=== PATIENT | female | born 1985 | race Caucasian/White ===

== ENCOUNTER 2021-04-04 12:51 | Emergency (ER) | payer MEDICAID ==
--- NOTE | 2021-04-04 14:14 | ED Physician Documentation ---
History of Present Illness - Stated complaint Stated Complaint: BLOODY STOOL - Chief complaint Chief Complaint: Abd Pain - Additonal information Additional information: 35-year-old female presents emergency department for evaluation of 6 weeks hematochezia. She reports that every bowel movement is soft and bright red. She states that this episode has lasted about 6 weeks but over the last year she has had 2 more brief episodes of bloody diarrhea. She states about 12 years ago she was diagnosed with internal hemorrhoids but this feels different. She does often have pain in her abdomen. She states that anytime she eats about 30 mi nutes later she immediately has to use the restroom and is often bloody. No NSAID use not anticoagulated. No personal or family history of Crohn's or ulcerative colitis. She just recently moved to [facility] and is not yet established with a primary. Review of Systems Constitutional: denies: Fever, Chills Eyes: reports: Reviewed and negative Ears: reports: Reviewed and negative Nose: reports: Reviewed and negative Throat: reports: Dental pain / toothache Cardiac: reports: Reviewed and negative Respiratory: reports: Reviewed and negative GI: reports: Abdominal Pain, Nausea, Vomiting : reports: Reviewed and negative Skin: reports: Reviewed and negative Musculoskeletal: reports: Reviewed and negative Neurologic: reports: Reviewed and negative PD PAST MEDICAL HISTORY - Present Medications Home Medications: Ambulatory Orders Medication Instructions Recorded Confirmed predniSONE [Deltasone] 10 mg PO [id number] #42 tab 04/04/21 - Allergies Allergies/Adverse Reactions: Allergies Allergy/AdvReac Type Severity Reaction Status Date / Time No Known Drug Allergies Allergy Verified 04/04/21 12:54 PD ED PE NORMAL - General General: Alert and oriented X 3, No acute distress - HEENT HEENT: PERRL - Neck Neck: Supple, no meningeal sign - Cardiac Cardiac: RRR, No murmur - Respiratory Respiratory: Clear bilaterally - Abdomen Abdomen: Normal bowel sounds, Soft, Non tender - Rectal Rectal: Other (Mani hematochezia. Nontender digital rectal exam) - Back Back: No CVA TTP - Derm Derm: Normal color, Warm and dry, No rash - Extremities Extremities: No deformity - Neuro Neuro: Alert and oriented X 3 Results - Vitals Vitals: Vital Signs - 24 hr 04/04/21 04/04/21 12:54 16:40 Temperature 36.5 C 36.1 C L Heart Rate 85 64 Respiratory 16 14 Rate Blood Pressure 122/66 105/70 O2 Saturation 100 100 Oxygen O2 Source Room air - Labs Labs: Laboratory Tests 04/04/21 04/04/21 04/04/21 14:30 14:30 14:30 WBC 5.5 RBC 3.67 L Hgb 11.9 L Hct 34.8 L MCV 94.8 MCH 32.4 H MCHC 34.2 RDW 11.9 L Plt Count 415 MPV 9.3 Neut # (Auto) 3.7 Lymph # (Auto) 1.2 L [place] # (Auto) 0.3 Eos # (Auto) 0.1 Baso # (Auto) 0.0 Absolute Nucleated RBC 0.00 Nucleated RBC % 0.0 INR (Fingerstick) Sodium 140 Potassium 4.3 Chloride 103 Carbon Dioxide 26 Anion Gap 11.0 BUN 11 Creatinine 0.5 Estimated GFR (MDRD) 139 Glucose 89 Calcium 9.3 Total Bilirubin 0.7 AST 14 ALT 10 Alkaline Phosphatase 38 L Total Protein 7.6 Albumin 4.1 Globulin 3.5 Albumin/Globulin Ratio 1.2 Lipase 29 Urine Color YELLOW Urine Clarity HAZY Urine pH 6.5 Ur Specific [place] 1.020 Urine Protein NEGATIVE Urine Glucose (UA) NEGATIVE Urine Ketones NEGATIVE Urine Occult Blood NEGATIVE Urine Nitrite NEGATIVE Urine Bilirubin NEGATIVE Urine Urobilinogen 0.2 (NORMAL) Ur Leukocyte Esterase TRACE H Urine RBC 0-5 Urine WBC 6-10 H Ur Squamous Epith Cells MOD Squamous H Urine Bacteria Moderate H Urine Mucus Moderate Strands Ur Microscopic Review INDICATED Urine Culture Comments NOT INDICATED Urine HCG, Qual 04/04/21 04/04/21 14:40 15:05 WBC RBC Hgb Hct MCV MCH MCHC RDW Plt Count MPV Neut # (Auto) Lymph # (Auto) [place] # (Auto) Eos # (Auto) Baso # (Auto) Absolute Nucleated RBC Nucleated RBC % INR (Fingerstick) 1.0 Sodium Potassium Chloride Carbon Dioxide Anion Gap BUN Creatinine Estimated GFR (MDRD) Glucose Calcium Total Bilirubin AST ALT Alkaline Phosphatase Total Protein Albumin Globulin Albumin/Globulin Ratio Lipase Urine Color Urine Clarity Urine pH Ur Specific [place] Urine Protein Urine Glucose (UA) Urine Ketones Urine Occult Blood Urine Nitrite Urine Bilirubin Urine Urobilinogen Ur Leukocyte Esterase Urine RBC Urine WBC Ur Squamous Epith Cells Urine Bacteria Urine Mucus Ur Microscopic Review Urine Culture Comments Urine HCG, Qual NEGATIVE - Rads (name of study) CT abd pelv Radiology: Final report received (Radiodense foreign body in left lower pelvis adjacent to the uterus. Wall thickening and edema involving the sigmoid colon and rectum which may represent infectious or inflammatory colitis. No bowel obstruction no free fluid or free air. Subtle hypodense area involving the right hepatic dome. ) PD MEDICAL DECISION MAKING - ED course Complexity details: reviewed results, d/w patient ED course: 35-year-old female presents emergency department for evaluation of intermittent hematochezia for the last year. This episode has been ongoing for about 6 weeks. On presentation she appears very well no tachycardia or hypotension. Digital rectal exam was consistent with hematochezia. Abdominal exam was mild nonfocal tenderness. Screening labs do show a mild anemia with a hemoglobin of 11.9. We did do a CT of the abdomen that unfortunately shows radiodense foreign body in the left lower pelvis adjacent to the uterus. This is likely the patient's IUD that was placed 2 years ago. There is some inflammatory changes and wall thickening of the colon and rectum. This may be related the radiopaque foreign body in the pelvis. This case was discussed With on-call OB Dr. Cazares. He has come to the bedside to evaluate the patient. Given that the patient is free of abdominal pain he would like to schedule the IUD removal as an outpatient and on a nonemergent basis. This is being scheduled for 08 April. Patient will also require referral to general surgery for further work-up and evaluation of the [place] easier. In the short-term she will be placed on a 10-day prednisone taper for the colon thickening and inflammation which may be colitis though at this time if it is related to the IUD is not yet understood. I am ordering stool studies for Dr. Cazares. If patient is unable to provide a sample here in the emergency department she will bring it in tomorrow. Emergent return precautions were discussed. Departure - Departure Disposition: 01 Home, Self Care Clinical Impression: Hematochezia IUD migration Qualifiers: Encounter type: initial encounter Qualified Code(s): T83.32XA - Displacement of intrauterine contraceptive device, initial encounter Condition: Stable Record reviewed to determine appropriate education?: Yes Follow-Up: Kwesi Cazares MD [Provider Admit Priv/Credential] - Prescriptions: predniSONE [Deltasone] 10 mg PO [id number] #42 tab Comments: Krys suazo are seen today in the emergency department for bloody stools. Your hemoglobin is 11.9. A CT scan shows that your IUD has migrated out of your uterus. This was discussed with our on-call OB. He would like to have your IUD removed on Thursday. The OB office will be contacting you to arrange this. In the short-term we are going to start a 10-day prednisone taper to see if steroids will help reduce the bloody stool you are having. Though it is unsure yet you may have a condition of bowel inflammation called Crohn's or colitis. You will absolutely need follow-up with the general surgeon for a colonoscopy. If you are having worsening rectal bleeding, feel faint or lightheaded, feel chest pain or shortness of breath and please report return immediately to the ER for a second evaluation.
[2021-04-04 14:36] LABS: BASOPHILS % (AUTO) 0.7 %; EOSINOPHILS # (AUTO) 0.1 10^3/uL (0.0-0.7); HCT - HEMATOCRIT 34.8 % (37.0-47.0); HGB - HEMOGLOBIN 11.9 g/dL (12.0-16.0); LYMPHOCYTES # (AUTO) 1.2 10^3/uL (1.5-3.5); LYMPHOCYTES % (AUTO) 22.8 %; MEAN CORPUSCULAR HEMOGLOBIN 32.4 pg (27.0-31.0); MEAN CORPUSCULAR HGB CONC 34.2 g/dL (32.0-36.0); MEAN CORPUSCULAR VOLUME 94.8 fL (81.0-99.0); MEAN PLATELET VOLUME 9.3 fL (7.9-10.8); MONOCYTES # (AUTO) 0.3 10^3/uL (0.0-1.0); MONOCYTES % (AUTO) 6.2 %; NEUTROPHILS # (AUTO) 3.7 10^3/uL (1.5-6.6); NEUTROPHILS % (AUTO) 68.1 %; PLT - PLATELET COUNT 415 10^3/uL (130-450); RED BLOOD COUNT 3.67 10^6/uL (4.20-5.40); RED CELL DISTRIBUTION WIDTH 11.9 % (12.0-15.0); WHITE BLOOD COUNT 5.5 x10^3/uL (4.8-10.8)
[2021-04-04] MEDS ORDERED: IOPAMIDOL-300 100 ML VIAL ONE (14:38)
[2021-04-04 14:49] LABS: BILIRUBIN,URINE NEGATIVE (NEGATIVE); GLUCOSE, URINE (UA) NEGATIVE (NEGATIVE); KETONES,URINE (UA) NEGATIVE (NEGATIVE); LEUKOCYTE ESTERASE, URINE TRACE (NEGATIVE); NITRITE,URINE NEGATIVE (NEGATIVE); OCCULT BLOOD,URINE NEGATIVE (NEGATIVE); PH,URINE 6.5 PH (5.0-7.5); PROTEIN,URINE NEGATIVE (NEGATIVE); UROBILINOGEN,URINE 0.2 (NORMAL) E.U./dL (NORMAL)
[2021-04-04 14:50] LABS: CLARITY,URINE HAZY (CLEAR)
[2021-04-04 14:52] LABS: HCG UR QUAL NEGATIVE
[2021-04-04 15:12] LABS: ALBUMIN 4.1 g/dL (3.2-5.5); ALBUMIN/GLOBULIN RATIO 1.2 (1.0-2.2); BACTERIA,URINE Moderate /HPF (None Seen); BILIRUBIN,TOTAL 0.7 mg/dL (0.2-1.0); CALCIUM 9.3 mg/dL (8.5-10.3); CREATININE 0.5 mg/dL (0.4-1.0); MUCUS,URINE Moderate Strands; POTASSIUM 4.3 mmol/L (3.5-5.0); RBC,URINE 0-5 /HPF (0-5); SQUAMOUS EPITHELIAL CELL,UR MOD Squamous (<= Few); TOTAL PROTEIN 7.6 g/dL (6.7-8.2)
--- NOTE | 2021-04-04 16:15 | CT Report ---
PROCEDURE: Abdomen/Pelvis W INDICATIONS: 6 weeks hematochezia CONTRAST: IV CONTRAST: Isovue 300 ml: 100 PO CONTRAST: *NO PO CONTRAST TECHNIQUE: After the administration of IV contrast, 5 mm thick sections acquired from the diaphragms to the symp hysis. 5 mm thick coronal and sagittal reformats were acquired. For radiation dose reduction, the f ollowing was used: automated exposure control, adjustment of mA and/or kV according to patient size. COMPARISON: None. FINDINGS: Image quality: Excellent. ABDOMEN: Lung bases: Lung bases are clear. Heart size is normal. Solid organs: Liver is normal in size. Subtle ill-defined hypodense area involving right hepatic dome is seen series 3 image 12. Gallbladder is within normal limits spleen is normal in size and show nor mal contrast enhancement. Biliary system is non dilated. Pancreas enhances normally. No adrenal no dules. Kidneys demonstrate normal size and enhancement, without hydronephrosis. Peritoneum and bowel: There is no evidence of bowel obstruction. Mild fecal stasis in the colon is se en. Wall thickening involving sigmoid colon and rectum is noted without significant pericolonic fat s tranding. There is no abscess collection. No free fluid or free air. Nodes and vessels: No retroperitoneal or mesenteric adenopathy by size criteria. Aorta and inferior vena cava are normal in size. Miscellaneous: No ventral hernias. PELVIS: Genitourinary: Bladder wall thickness is normal. There is a T-shaped radiodensity seen in left adne xa adjacent to superior and left lateral aspect of uterus. No gross abnormality is seen in bilateral ovaries. Miscellaneous: No inguinal hernias or adenopathy. Bones: No suspicious bony lesions. No vertebral body compression fractures. IMPRESSION: 1. Radiodense foreign body in left lower pelvis adjacent to the uterus as described above and is of i ndeterminant etiology. [employer] correlation is recommended. 2. There is wall thickening and edema involving sigmoid colon and rectum which may represent infectio ns or inflammatory colitis. No bowel obstruction. No free fluid or free air. 3. Subtle hypodense area involving right hepatic dome and is of indeterminant etiology. Mild hepatome dick. Follow-up evaluation with dedicated CT or MRI of liver without and with contrast can be done as an outpatient. Reviewed by: Vimal Lange MD on 04/04/2021 4:14 PM PDT Approved by: Vimal Lange MD on 04/04/2021 4:14 PM PDT Station ID: [id number]
[2021-04-04] MEDS ORDERED: SODIUM CHLORIDE 0.9% 1,000 ML IV STA (16:48)
[2021-04-04] MEDS ORDERED: IOPAMIDOL-300 100 ML VIAL IVP ONE (18:00)
--- NOTE | 2021-04-04 18:10 | HISTORY & PHYSICAL EXAMINATION ---
History and Physical - History and Physical Identification: Patient is a 35-year-old G7, P3 AB 4 female. LMP 17 March Chief complaint: blood in stool History of present illness: Patient states for the last 6 weeks she is noted to have blood in her stool. This is bright red in color. It is becoming worse and worse with time. She does have a history of having internal hemorrhoids in the past. She states she also complains of pressure rectal as well as pelvic. She states the stool is watery in nature. She denies any history of Giardia. She states that she does not engage in anal intercourse. Patient had an MRI of the pelvis which showed evidence of an IUD which is superior and outside the uterus. She had an IUD placed in April 2019 recalls this is being a Mirena. She states that she is not been able to feel the strings for quite some time. She had her IUD placed roughly 2 years ago. This was her first IUD. She denies any plane bleeding or cramping at this time. She denies any dyspareunia. Past medical history: Positive for hepatitis C which has been treated with medication Surgical history: Breast augmentation 2012 Medications: None Allergies: None known Social history: Patient vapes a lot. She denies use of any alcohol. She does do edible THC at bedtime. Social history: Patient is a stable constant monogamous relationship at this time. She works as a homemaker. Family history: Positive for mother and grandmother with hypertension, paternal grandmother with breast cancer, father with atrial fib. She denies any history of any colon cancer at this time. Review of systems negative for HEENT, heart, lungs, GI notes diarrhea as previously noted. Physical examination: Patient is a well-developed well-nourished female she is no acute distress at this time. HEENT: Pupils equal round extraocular muscle intact Mouth: Clear Throat: Thyroid not enlarged Heart: Regular rate and rhythm without murmurs Lungs: Clear without rales or wheezes Abdomen is without scars. She has some vague tenderness in the suprapubic area as well as the left upper quadrant. CT shows evidence of an IUD which is above the uterus. It does not appear to be impinging on the bowel. CBC shows Which is normal her hemoglobin is 11.9. Electrolytes are all within normal limits. Impression #1. 35-year-old G7, P3 female with IUD outside the uterus 2. Diarrhea, bloody Plan: Have discussed the case with Dr. Camelia Lagos. She is recommending stool studies. She does not believe that she needs to be involved surgically at this point. But she will be available. We will schedule her for a laparoscopic removal of IUD on Thursday as she is completely stable. Pt will need bowel workup.
[2021-04-04 18:11] VITALS: BP 97/52
== END 2021-04-04 18:11 | disposition home or self-care (01) ==
LOC: ED 12:51
DX: K92.1 Melena (principal); T83.32XA Displacement of intrauterine contraceptive device, initial encounter; Y76.8 Miscellaneous obstetric and gynecological devices associated with adverse incidents, not elsewhere classified; K64.8 Other hemorrhoids; F17.290 Nicotine dependence, other tobacco product, uncomplicated; Z86.19 Personal history of other infectious and parasitic diseases
CPT/HCPCS: 36415; 74177; 80053; 81001; 81025; 81599; 83690; 85025; 85610; 87177; 87209; 96360; 99284; Q9967; 81003; 83630; 87045; 87046; 87086; 87329; 87338; 87798

== ENCOUNTER 2021-04-08 06:16 | Day surgery (SDC) | payer MEDICAID ==
[~2021-04-08 06:16] MED LIST: ACETAMINOPHEN 1,000 MG/100 ML 100 ML IV ONE; GABAPENTIN 400 MG CAPSULE ONE; ceFAZolin 2 GM/50 ML 2 GM/50 ML BAG IV ONE
[2021-04-08] MEDS ORDERED: LACTATED RINGERS 1,000 ML IV ONE ×2 (06:19→08:49)
[2021-04-08 06:33] LABS: HCG UR QUAL NEGATIVE
[2021-04-08] MEDS ORDERED: PROPOFOL 200 MG/20 ML VIAL IVP ONE (06:58)
[2021-04-08] MEDS ORDERED: fentaNYL 100 MCG/2 ML VIAL ONE (06:58)
[2021-04-08] MEDS ORDERED: LIDOCAINE-MPF 2% 5 ML VIAL ONE (06:58)
[2021-04-08] MEDS ORDERED: MIDAZOLAM 2 MG/2 ML VIAL ONE (06:58)
[2021-04-08] MEDS ORDERED: ROCURONIUM 50 MG/5 ML VIAL ONE (06:58)
[2021-04-08] MEDS ORDERED: KETOROLAC 30 MG/ML VIAL ONE (06:59)
[2021-04-08] MEDS ORDERED: DEXAMETHASONE 4 MG/ML VIAL ONE (06:59)
[2021-04-08] MEDS ORDERED: ONDANSETRON 4 MG/2 ML VIAL ONE (06:59)
--- NOTE | 2021-04-08 07:00 | ANESTHESIA ---
Pre-Anesthesia VS, & Labs - Diagnosis IUD migration to abdomen - Procedure Laparoscopic intra-abdominal IUD removal Vital Signs: Temp Pulse Resp BP Pulse Ox 36.4 C L 72 14 114/80 100 04/08/21 06:26 04/08/21 06:26 04/08/21 06:26 04/08/21 06:26 04/08/21 06:26 Height: 5 ft 4 in Weight (kg): 58.8 kg Body Mass Index: 22.2 BMI Classification: Healthy weight - NPO >8 hours - Is Patient ?: No - Lab Results Lab results reviewed: Yes Home Medications and Allergies Home Medications: Ambulatory Orders Acetaminophen [Tylenol] 650 mg PO DAILY 04/05/21 Acetaminophen [Tylenol] 650 mg PO DAILY 04/05/21 Allergies/Adverse Reactions: Allergies Allergy/AdvReac Type Severity Reaction Status Date / Time No Known Drug Allergies Allergy Verified 04/04/21 12:54 Anes History & Medical History - Anesthetic History Anesthesia Complications: reports: No previous complications Family history of Anesthesia Complications: Denies Family history of Malignant Hyperthermia: Denies - Medical History Cardiovascular: reports: None Pulmonary: reports: None Gastrointestinal: reports: None Urinary: reports: None Musculoskeletal: reports: None Endocrine/Autoimmune: reports: None Skin: reports: Eczema Smoking Status: Former smoker (current vape) Psychosocial: reports: No issues indicated History of Cancer?: No - Surgical History Gynecologic: reports: Breast implants Exam General: Alert, Oriented x3, Cooperative Dental: WNL Mouth Openin Fingerbreadth Neck Mobility: Normal Mallampati classification: I Thyromental Distance: 4-6 cm Respiratory: Lungs clear, Normal breath sounds, No respiratory distress Cardiovascular: Regular rate Neurological: Normal speech Mental/Cognitive Status: Alert/Oriented X3, Normal for patient Cognitive Status: Within normal limits Plan Anesthesia Type: General Consent for Procedure(s) Verified and Reviewed: Yes Code Status: Attempt Resuscitation ASA classification: 2-Mild systemic disease Is this case an emergency?: No
[2021-04-08] MEDS ORDERED: LIDOCAINE 2%-EPI 1:100000 20 ML MDV ONE (07:16)
[2021-04-08] MEDS ORDERED: BUPIVACAINE 0.5% PF 10 ML VIAL ONE (07:17)
[2021-04-08] MEDS ORDERED: ePHEDrine 50 MG/ML VIAL IVP PRN (07:28)
[2021-04-08] MEDS ORDERED: ATROPINE ABBOJECT 1 MG/10 ML SYRINGE IVP PRN (07:28)
[2021-04-08] MEDS ORDERED: ONDANSETRON 4 MG/2 ML VIAL IVP PRN (07:28)
[2021-04-08] MEDS ORDERED: METOCLOPRAMIDE 10 MG/2 ML VIAL IVP PRN (07:28)
[2021-04-08] MEDS ORDERED: fentaNYL 100 MCG/2 ML VIAL IVP PRN (07:28)
[2021-04-08] MEDS ORDERED: HYDROmorphone 0.5 MG/0.5 ML SYRINGE IVP PRN (07:28)
[2021-04-08] MEDS ORDERED: MORPHINE 2 MG/ML CARPUJECT IVP PRN (07:28)
[2021-04-08] MEDS ORDERED: NALOXONE 0.4 MG/ML VIAL IVP PRN (07:28)
[2021-04-08] MEDS ORDERED: BUPIVACAINE 0.5%-EPI 1:200000 PF 30 ML VIAL ONE (07:41)
[2021-04-08] MEDS ORDERED: LACTATED RINGERS 1,000 ML IV SCH (08:00)
[2021-04-08] MEDS ORDERED: BUPIVACAINE 0.5%-EPI 1:200000 PF 30 ML VIAL SUBQ ONE (08:29)
[2021-04-08] MEDS ORDERED: SUGAMMADEX 200 MG/2 ML VIAL IVP ONE (08:34)
--- NOTE | 2021-04-08 09:00 | OPERATIVE REPORT ---
Operative Report - General Procedure Date: 04/08/21 Planned Procedure: Laparoscopic removal of displaced IUD Pre-Op Diagnosis: IUD outside uterus on CT scan Procedure Performed: Laparoscopic removal of displaced IUD Post Op Diagnosis: Extrauterine displacement of IUD - Procedure Note Primary Surgeon: Elena Baird MD Secondary Surgeon: Lev Ovalle MD Anesthesia Provider: Kevin Damian MD Anesthesia Technique: General LMA Pathology: None IV Fluids (mL): 1,000 Estimated Blood Loss (mL): 5 Urine Output (mL): 50 Indications: 35 yo presented to the ED with bloody diarrhea. CT scan showed IUD present outside the uterus. Patient presents for laparoscopic removal of IUD. Findings: IUD strings were visible at the external os. Strings were pulled with ring forceps but met with significant resistance. Laparoscopic exploration of the pelvis showed IUD had completed perforated the uterus and was dangling from the posterior aspect of the uterus. Exploration of the pelvis and abdomen were unremarkable. Normal uterus, fallopian tubes, and ovaries. Normal cul de sac. Normal liver edge. Complications: None - Other Other Information/Narrative: Risks benefits and alternatives of the procedure were reviewed. Consent was again confirmed. Patient was brought to the operating room and underwent general anesthesia. She was placed in dorsal lithotomy position with legs resting in yellowfin stirrups. SCDs were in place and activated. Instruments were then removed from the vagina. She was then prepped and draped in the usual sterile fashion. Surgical timeout was performed. Bimanual exam was performed. Sterile speculum was placed. The cervix was visualized. IUD strings were noted. Ring forceps was used to pull on the strings but efforts were met with resistance. The Humi uterine manipulator was placed. The base of the umbilicus was anesthetized with intradermal injection of 0.5% Bupivicaine with epinephrine. A 5 mm skin incision was made with a scalpel. A 5 mm blunt trocar was inserted under direct visualization using Visiport. Once the port was confirmed to be placed intraperitoneally, the abdomen was insufflated to 15 mmHg with CO2 gas Exploration of the abdomen and pelvis was confirmed that no injury was sustained with placement of the trocar. An additional 5 mm port were placed in the left lower quadrants, taking care to avoid the epigastric arteries, while under direct visualization via laparoscopic guidance. The abdomen was explored with the laparoscope, with findings as noted. The lIUD noted to be completed perforated through the posterior aspect of the uterus. It was grasped at the base and extracted from the uterus. It was then pulled through the left lateral port. It was examined and found to be intact. Good hemostasis was noted. The abdomen was partially desufflated. Extraciotn point was observed under decreased pressure and good hemostasis was again confirmed. Abdomen was then completely desufflated. All instruments were removed from the abdomen. Skin was closed with interrupted subcuticular stitches using 4-0 Monocryl. Dermabond was applied over the suture sites. The Humi manipulator was removed from the uterus. Again, good hemostasis was noted. The final sponge needle and instrument counts were correct at completion of the procedure patient was awakened taken to the postanesthesia care unit in stable condition. Dr. Ovalle assisted with camera manipulation and retraction.
[2021-04-08 09:22] VITALS: BP 112/91
--- NOTE | 2021-04-08 12:41 | ANESTHESIA POST OP EVALUATION ---
Anesthesia Post Eval - Post Anesthesia Eval Vitals: Last Vital Signs Temp 36.5 C 04/08/21 09:20 Pulse 77 04/08/21 09:20 Resp 14 04/08/21 09:20 BP 112/91 H 04/08/21 09:20 Pulse Ox 100 04/08/21 09:20 CV Function Including HR & BP: Stable Pain Control: Satisfactory Nausea & Vomiting: Negative Mental Status: Baseline Respiratory Status: Airway Patent Hydration Status: Satisfactory Anesthesia Complications: None
== END 2021-04-08 06:17 | disposition home or self-care (01) ==
LOC: SDS 06:16
PROVIDERS: ATTEND Obstetrics & Gynecology
DX: T83.32XA Displacement of intrauterine contraceptive device, initial encounter (principal); Y76.8 Miscellaneous obstetric and gynecological devices associated with adverse incidents, not elsewhere classified; Z86.19 Personal history of other infectious and parasitic diseases; F17.290 Nicotine dependence, other tobacco product, uncomplicated
CPT/HCPCS: 58578; 81025; 87635; A9270; J0131; J0690; J7120

== ENCOUNTER 2021-04-24 12:30 | Outpatient (CLI) | payer MEDICAID | END 2021-04-24 12:31 | disposition home or self-care (01) | LOC: COV 12:30 | PROVIDERS: ATTEND Surgery | DX: Z01.812 Encounter for preprocedural laboratory examination (principal); K52.9 Noninfective gastroenteritis and colitis, unspecified; B19.20 Unspecified viral hepatitis C without hepatic coma; Z20.822 Contact with and (suspected) exposure to COVID-19 ==

== ENCOUNTER 2021-04-26 07:01 | Day surgery (SDC) | payer MEDICAID ==
[2021-04-26] MEDS ORDERED: LACTATED RINGERS 1,000 ML IV ONE ×2 (07:07→08:49)
[2021-04-26 07:18] LABS: HCG UR QUAL NEGATIVE
--- NOTE | 2021-04-26 07:51 | ANESTHESIA ---
Pre-Anesthesia VS, & Labs - Diagnosis bloody diarrhea - Procedure colonoscopy Vital Signs: Temp Pulse Resp BP Pulse Ox 36.6 C 89 14 109/67 100 04/26/21 07:08 04/26/21 07:08 04/26/21 07:08 04/26/21 07:08 04/26/21 07:08 Height: 5 ft 4 in Weight (kg): 55 kg Body Mass Index: 20.8 BMI Classification: Healthy weight - NPO >8 hours - Is Patient ?: No Home Medications and Allergies Acetaminophen [Tylenol] 650 mg PO DAILY 04/05/21 Allergies/Adverse Reactions: Allergies Allergy/AdvReac Type Severity Reaction Status Date / Time No Known Drug Allergies Allergy Verified 04/04/21 12:54 Anes History & Medical History - Anesthetic History Anesthesia Complications: reports: No previous complications Family history of Anesthesia Complications: Denies Family history of Malignant Hyperthermia: Denies - Medical History Cardiovascular: reports: None Pulmonary: reports: None Gastrointestinal: reports: None Urinary: reports: None Musculoskeletal: reports: None Endocrine/Autoimmune: reports: None Skin: reports: Eczema Smoking Status: Former smoker (current vape) - Surgical History Gynecologic: reports: Breast implants Exam General: Alert, Oriented x3, Cooperative Dental: WNL Mouth Openin Fingerbreadth Neck Mobility: Normal Mallampati classification: I Respiratory: Lungs clear Cardiovascular: Regular rate Plan Anesthesia Type: Total IV Consent for Procedure(s) Verified and Reviewed: Yes Code Status: Attempt Resuscitation ASA classification: 2-Mild systemic disease Is this case an emergency?: No
[2021-04-26] MEDS ORDERED: PROPOFOL 200 MG/20 ML VIAL IVP ONE (08:21)
[2021-04-26] MEDS ORDERED: fentaNYL 100 MCG/2 ML VIAL ONE (08:21)
[2021-04-26] MEDS ORDERED: LIDOCAINE-PF 2% 10 ML AMP SUBQ ONE (08:21)
[2021-04-26] MEDS ORDERED: MIDAZOLAM 2 MG/2 ML VIAL ONE (08:21)
[2021-04-26] MEDS ORDERED: PROPOFOL 500 MG/50 ML 500 MG/50 ML VIAL ONE (08:21)
[2021-04-26 09:28] VITALS: BP 95/64
--- NOTE | 2021-04-26 14:04 | ANESTHESIA POST OP EVALUATION ---
Anesthesia Post Eval - Post Anesthesia Eval Vitals: Last Vital Signs Temp 36.6 C 04/26/21 09:27 Pulse 84 04/26/21 09:27 Resp 12 04/26/21 09:27 BP 95/64 04/26/21 09:27 Pulse Ox 99 04/26/21 09:27 CV Function Including HR & BP: Stable Pain Control: Satisfactory Nausea & Vomiting: Negative Mental Status: Baseline Respiratory Status: Airway Patent Hydration Status: Satisfactory Anesthesia Complications: None
== END 2021-04-26 07:02 | disposition home or self-care (01) ==
LOC: SDS 07:01
PROVIDERS: ATTEND Surgery
PROC: 0DBL8ZX Excision of Transverse Colon, Via Natural or Artificial Opening Endoscopic, Diagnostic (ICD-10-PCS; 2021-04-26)
PROC: 0DBN8ZX Excision of Sigmoid Colon, Via Natural or Artificial Opening Endoscopic, Diagnostic (ICD-10-PCS; 2021-04-26)
PROC: 0DBP8ZX Excision of Rectum, Via Natural or Artificial Opening Endoscopic, Diagnostic (ICD-10-PCS; 2021-04-26)
PROC: 0DBB8ZX Excision of Ileum, Via Natural or Artificial Opening Endoscopic, Diagnostic (ICD-10-PCS; 2021-04-26)
PROC: 0DBM8ZX Excision of Descending Colon, Via Natural or Artificial Opening Endoscopic, Diagnostic (ICD-10-PCS; 2021-04-26)
PROC: 0DBH8ZX Excision of Cecum, Via Natural or Artificial Opening Endoscopic, Diagnostic (ICD-10-PCS; 2021-04-26)
PROC: 0DBK8ZX Excision of Ascending Colon, Via Natural or Artificial Opening Endoscopic, Diagnostic (ICD-10-PCS; principal; 2021-04-26 08:30)
DX: R19.7 Diarrhea, unspecified (principal); F17.290 Nicotine dependence, other tobacco product, uncomplicated; K92.1 Melena; K52.89 Other specified noninfective gastroenteritis and colitis
CPT/HCPCS: 45380; 81025; 81599; 83630; 87015; 87177; 87209; 87272; 87329; 87493; J7120; 87045; 87046